=== PATIENT | male | born 1965 | race Two or more races ===

== ENCOUNTER 2016-11-26 12:31 | Inpatient (IN) | payer SELFPAY ==
[~2016-11-26] VITALS: Ht 165.1 cm; Wt 75.5 kg
[2016-11-26 14:19] LABS: BASOPHIL % 0.3 % (0-2); PLATELET COUNT 169 x10^3mcL (130-400); RED CELL DISTRIBUTION WIDTH 12.7 % (11.5-14.5)
[2016-11-26 14:30] LABS: CALCIUM 8.7 mg/dL (8.5-10.1); CARBON DIOXIDE 28.5 mmol/L (21-32); CHLORIDE SERUM 98 mmol/L (98-107); GFR1 > 60 mL/min; GLUCOSE SERUM 105 mg/dL (74-106); POTASSIUM SERUM 4.1 mmol/L (3.5-5.1); SODIUM SERUM 136 mmol/L (136-145)
[2016-11-26 14:34] LABS: ALBUMIN 3.9 g/dL (3.4-5.0); ALKALINE PHOSPHATASE 97 U/L (46-116); ALT/SGPT 34 U/L (16-63); AMYLASE 64 U/L (25-115); AST/SGOT 27 U/L (15-37); BILIRUBIN TOTAL 1.97 mg/dL (0.20-1.00); LIPASE 114 IU/L (73-393); TOTAL PROTEIN, SERUM 7.8 g/dL (6.4-8.2)
[2016-11-26 16:15] LABS: MAGNESIUM 1.9 mg/dL (1.8-2.4); PHOSPHOROUS 3.7 mg/dL (2.5-4.9)
[2016-11-26 16:19] LABS: CHOLESTEROL/HDL RATIO 2.8
[2016-11-26 16:33] LABS: microscopic required? YES; urine erythrocyte TRACE (NEGATIVE)
[2016-11-26 16:35] LABS: T3 TOTAL 0.95 ng/mL
[2016-11-26 16:37] LABS: FREE T4 0.99 ng/dL (0.76-1.46); FREE THYROXINE INDEX 2.5 ug/dL (1.4-4.5); T4(THYROXINE) 7.1 ug/dL (4.7-13.3)
[2016-11-26 16:40] LABS: AMPHETAMINE QUAL UR NONE DETECTED (NEG <=1000)
[2016-11-26 16:48] VITALS: BP 138/68
[2016-11-26 21:41] VITALS: BP 93/57
[2016-11-27 05:39] VITALS: BP 106/70
[2016-11-27 06:10] LABS: BASOPHIL % 0.3 % (0-2); PLATELET COUNT 160 x10^3mcL (130-400); RED CELL DISTRIBUTION WIDTH 12.5 % (11.5-14.5)
[2016-11-27 06:32] LABS: CALCIUM 7.9 mg/dL (8.5-10.1); CARBON DIOXIDE 24.6 mmol/L (21-32); CHLORIDE SERUM 102 mmol/L (98-107); CREATININE SERUM 1.2 mg/dL (0.7-1.3); GFR1 > 60 mL/min; GLUCOSE SERUM 139 mg/dL (74-106); PHOSPHOROUS 3.9 mg/dL (2.5-4.9); POTASSIUM SERUM 4.6 mmol/L (3.5-5.1); SODIUM SERUM 137 mmol/L (136-145)
[2016-11-27 09:25] VITALS: BP 112/67
[2016-11-27 14:03] VITALS: BP 108/72
[2016-11-27] MEDS ORDERED: ACETAMINOPHEN-H1 TA1 PO (14:06)
[2016-11-27] MEDS ORDERED: COL100 PO (14:06)
[2016-11-27] MEDS ORDERED: IBUPROFEN400 MG PO (14:07)
[2016-11-27 15:12] VITALS: BP 108/72
== END 2016-11-27 15:59 | disposition home or self-care (01) | DRG 341 ==
LOC: ED 12:31 → DU 15:32 → MU 11-27 12:24
PROVIDERS: Emergency Medicine; Surgery; ADMIT Family Medicine
PROC: 0DTJ4ZZ Resection of Appendix, Percutaneous Endoscopic Approach (ICD-10-PCS; principal; 2016-11-26 17:30)
DX: K35.80 Unspecified acute appendicitis (principal); N17.0 Acute kidney failure with tubular necrosis; E80.6 Other disorders of bilirubin metabolism; E78.5 Hyperlipidemia, unspecified; Z82.49 Family history of ischemic heart disease and other diseases of the circulatory system; Z87.891 Personal history of nicotine dependence
CPT/HCPCS: 83880; 84439; 94150; G0480; J0295; J1885; J2250; J2270; J2405; J3010; J3490; J7030; Q0092